=== PATIENT | female | born 1990 | race African-American/Black ===

== ENCOUNTER 2021-06-27 08:27 | Emergency (ER) | payer OTHER ==
[~2021-06-27] VITALS: Ht 154.9 cm; Wt 60.3 kg
[2021-06-27 08:28] VITALS: BP 121/73
[2021-06-27 10:10] LABS: RSV AMPLIFICATION NEGATIVE (NEGATIVE)
== END 2021-06-27 09:46 | disposition home or self-care (01) ==
LOC: M ED 08:27
DX: U07.1 COVID-19 (principal); R50.9 Fever, unspecified; R05 Cough; M79.10 Myalgia, unspecified site

== ENCOUNTER 2022-02-20 06:28 | Emergency (ER) | payer OTHER ==
[~2022-02-20] VITALS: Ht 157.5 cm; Wt 63.6 kg
[2022-02-20] MEDS ORDERED: MIRA3350 PO (07:43)
[2022-02-20 07:46] VITALS: BP 125/63
== END 2022-02-20 07:59 | disposition home or self-care (01) ==
LOC: M ED 06:28
DX: K62.5 Hemorrhage of anus and rectum (principal); K59.00 Constipation, unspecified